=== PATIENT | male | born 1975 | race Caucasian/White ===

== ENCOUNTER 2020-02-09 16:50 | Emergency (ER) | payer OTHER ==
[~2020-02-09] VITALS: Ht 180.3 cm; Wt 99.8 kg
[2020-02-09 18:45] LABS: HEMATOCRIT 44.4 % (42.0-52.0); HEMOGLOBIN 15.7 gm/dL (14.0-18.0); MCH 33.5 pg (26.0-34.0); MCHC 35.4 g/dL (28.0-37.0); MCV 94.6 fL (80.0-100.0); MPV 8.8 fl. (7.2-11.1); NUCLEATED RBCS 0 /100WBC; PLATELET COUNT* 120 thou/uL (150-400); RBC 4.69 mil/uL (4.50-6.00); WBC 11.1 thou/uL (4.0-11.0)
[2020-02-09 18:54] LABS: CALCIUM 8.6 mg/dL (8.5-10.1); CREATININE 1.3 mg/dL (0.6-1.3); POTASSIUM 4.1 mmol/L (3.5-5.1)
[2020-02-09 18:58] LABS: APTT 31.7 Seconds (25.0-31.3)
[2020-02-09 19:05] LABS: ALBUMIN 3.4 g/dL (3.4-5.0); TOTAL BILIRUBIN 0.6 mg/dL (<0.1-1.0); TOTAL PROTEIN 7.4 g/dL (6.4-8.2)
[2020-02-09 19:15] LABS: ABSOLUTE LYMPHOCYTES 0.9 thou/uL (0.8-5.3); ABSOLUTE MONOCYTES 0.3 thou/uL (0.0-1.2); ABSOLUTE NEUTROPHILS 9.9 thou/uL (1.6-8.1)
[2020-02-09 19:18] LABS: LARGE PLATELETS OCCASIONAL; PLATELET ESTIMATE ADEQUATE
[2020-02-09] MEDS ORDERED: PREDNISONE 20 M20 MG PO (19:53)
[2020-02-09] MEDS ORDERED: ONDANSETRON HCL4 M2 PO (19:53)
[2020-02-09] MEDS ORDERED: ZPAK PO (19:53)
[2020-02-09] MEDS ORDERED: VENTOLIN HFA 1818 GM INH (19:53)
[2020-02-09 20:12] VITALS: BP 118/78
--- NOTE | 2020-02-10 09:35 | EKG ---
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
== END 2020-02-09 20:13 | disposition home or self-care (01) ==
LOC: M.ERS 16:50
PROVIDERS: Nurse Practitioner Family
DX: U07.1 COVID-19 (principal); R06.02 Shortness of breath; R05 Cough; R53.83 Other fatigue

== ENCOUNTER 2020-02-12 10:33 | Inpatient (IN) | payer OTHER ==
[~2020-02-12] VITALS: Ht 180.3 cm; Wt 100.2 kg
[~2020-02-12 10:33] MED LIST: ONDANSETRON HCL4 M2 PO; PREDNISONE 20 M20 MG PO; VENTOLIN HFA 1818 GM INH; ZPAK PO
[2020-02-12 10:52] VITALS: BP 125/56
[2020-02-12 11:38] LABS: HEMATOCRIT 39.7 % (42.0-52.0); MCH 33.6 pg (26.0-34.0); MCHC 35.1 g/dL (28.0-37.0); MCV 95.6 fL (80.0-100.0); MPV 8.7 fl. (7.2-11.1); NUCLEATED RBCS 0 /100WBC; RBC 4.16 mil/uL (4.50-6.00); RDW-CV 13.2 % (10.5-14.5); WBC 16.7 thou/uL (4.0-11.0)
[2020-02-12 11:39] LABS: PLATELET COUNT* 202 thou/uL (150-400)
[2020-02-12 11:50] LABS: APTT 30.5 Seconds (25.0-31.3); INR 0.9; PROTIME 9.8 Seconds (9.20-11.50)
[2020-02-12 11:56] LABS: CALCIUM 8.6 mg/dL (8.5-10.1); CREATININE 1.4 mg/dL (0.6-1.3); POTASSIUM 4.1 mmol/L (3.5-5.1)
[2020-02-12 12:15] LABS: ALBUMIN 2.6 g/dL (3.4-5.0); TOTAL BILIRUBIN 1.1 mg/dL (<0.1-1.0); TOTAL PROTEIN 6.9 g/dL (6.4-8.2)
[2020-02-12 12:45] LABS: ABSOLUTE LYMPHOCYTES 0.5 thou/uL (0.8-5.3); ABSOLUTE MONOCYTES 0.2 thou/uL (0.0-1.2); PLATELET ESTIMATE ADEQUATE
[2020-02-12 16:19] VITALS: BP 128/77
--- NOTE | 2020-02-12 16:23 | EKG ---
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
[2020-02-12 19:30] VITALS: BP 138/92
--- NOTE | 2020-02-12 20:00 | NUR ---
RECEIVED REPORT FROM ER, TO ROOM PER CART. PT VERY SOA WITH REST OR SLIGHTIST MOVEMENT. O2 ON AT 60L/HHFC, HOB ELEVATED. CONT PULSE OX APPLIED, DESATS EASILY BUT RECOVERS/MAINTAINS 88-91%. TELEMETRY APPLIED SHOWING ST. PT VERY ANXIOUS AND ASKING IF HE IS GOING TO WITH THIS. REASSURANCE GIVEN. SEE ADMISSION ASSESSMENT AND HX. PLACED IN ENHANCED ISOLATION, WILL CONT TO MONITOR FREQ.
[2020-02-13] VITALS: BP 156/79
[2020-02-13 04:00] VITALS: BP 149/90
[2020-02-13 05:18] LABS: ABSOLUTE LYMPHOCYTES 0.4 thou/uL (0.8-5.3); ABSOLUTE MONOCYTES 0.5 thou/uL (0.0-1.2); ABSOLUTE NEUTROPHILS 11.6 thou/uL (1.6-8.1); BASOPHILS 0.2 %; HEMATOCRIT 40.6 % (42.0-52.0); HEMOGLOBIN 14.2 gm/dL (14.0-18.0); LYMPHOCYTES 3.5 %; MCH 33.8 pg (26.0-34.0); MCHC 34.8 g/dL (28.0-37.0); MCV 97.1 fL (80.0-100.0); MONOCYTES 4.1 %; MPV 8.6 fl. (7.2-11.1); NUCLEATED RBCS 0 /100WBC; PLATELET COUNT* 211 thou/uL (150-400); POLYS 92.2 %; RBC 4.19 mil/uL (4.50-6.00); RDW-CV 13.2 % (10.5-14.5); WBC 12.6 thou/uL (4.0-11.0)
[2020-02-13 05:40] LABS: CALCIUM 8.6 mg/dL (8.5-10.1); CREATININE 1.2 mg/dL (0.6-1.3); POTASSIUM 4.5 mmol/L (3.5-5.1)
--- NOTE | 2020-02-13 05:47 | NUR ---
ANXIOUS MOST OF NIGHT, ABLE TO SLEEP ONLY SHORT PERIODS OF TIME. HAVING OCC DRY COUGH CAUSING INCREASE SOA. ANY ACTIVITY PT BECOMES EXTREMELY DYSPNIC. O2 ON AT 60L/HHFC. CONT PULSE OX SHOWING 88-90% BUT INTO MID 80'S WITH ACTIVITY. VOIDING WITHOUT DIFFICULTY. TELEMETRY SHOWING SR TO ST. PT IN ENHANCED ISOLATION BECAUSE OF COVID. HOURLY ROUNDING OBSERVED.
[2020-02-13 09:56] LABS: BE -1.8 mmol/L (-2 to +3); PCO2 29.3 mmHg (35.0-45.0); pH 7.467 (7.340-7.450)
[2020-02-13 09:59] LABS: PO2 55.2 mmHg (75.0-100.0)
--- NOTE | 2020-02-13 14:30 | NUR ---
Covid positive. CM spoke with via phone. Pt on heated high flow o2, does not normally wear home o2. No DME. Active and independent. No hx of HH or SNF. On Remdisivir. Transferring to the ICU per pulm.
[2020-02-13 16:07] LABS: CREATININE 1.3 mg/dL (0.6-1.3); MAGNESIUM 2.3 mg/dL (1.8-2.4); POTASSIUM 4.1 mmol/L (3.5-5.1)
[2020-02-13 16:12] LABS: APTT 28.7 Seconds (25.0-31.3); PROTIME 10.3 Seconds (9.20-11.50)
[2020-02-13 16:14] LABS: ALBUMIN 2.1 g/dL (3.4-5.0); DIRECT BILIRUBIN 0.4 mg/dL (<0.1-0.3); TOTAL BILIRUBIN 0.9 mg/dL (<0.1-1.0); TOTAL PROTEIN 6.8 g/dL (6.4-8.2)
--- NOTE | 2020-02-13 17:46 | NUR ---
REBEKAH DEVELOPED INCRESED SHORTNESS OF BREATH WHILE USING 60 L HEATED HIGH FLOW AND THE DECISIONO WAS MADE OT INTUBATE AND TRANSFER TO ICU. AT 15:00
--- NOTE | 2020-02-13 18:06 | NUR ---
RECIEVED PT FROM TELE ON VERSED AND FENTANYL MAX DOSE. WITH ET TUBE AND HOOKED TO MV. SEEN BY PULMO WITH ORDERS CARRIED OUT. CENTRAL LINE INSERTED AND STILL FOR ARTLINE INSERTION. KEPT ON ISOLATION. STILL TO TRANSFUSE FFP. CONTINUE MONITORING AND TOWARDS GOALS. UPDATE GIVEN TO CYNDEE.
[2020-02-13 18:23] LABS: BE -3.6 mmol/L (-2 to +3)
[2020-02-13 18:25] LABS: PCO2 51.4 mmHg (35.0-45.0); pH 7.279 (7.340-7.450)
[2020-02-13 19:00] VITALS: BP 153/63
[2020-02-13 21:30] VITALS: BP 115/53
[2020-02-13 21:55] VITALS: BP 123/57; BP 127/58
[2020-02-14] VITALS (19 sets, daily range): BP systolic 114–215; BP diastolic 52–140
[2020-02-14 06:28] LABS: ABSOLUTE LYMPHOCYTES 0.3 thou/uL (0.8-5.3); ABSOLUTE MONOCYTES 0.7 thou/uL (0.0-1.2); ABSOLUTE NEUTROPHILS 8.1 thou/uL (1.6-8.1); BASOPHILS 0.1 %; HEMATOCRIT 34.4 % (42.0-52.0); LYMPHOCYTES 3.4 %; MCH 33.5 pg (26.0-34.0); MCHC 34.6 g/dL (28.0-37.0); MCV 96.7 fL (80.0-100.0); MONOCYTES 7.4 %; MPV 8.7 fl. (7.2-11.1); NUCLEATED RBCS 0 /100WBC; PLATELET COUNT* 257 thou/uL (150-400); POLYS 89.1 %; RBC 3.56 mil/uL (4.50-6.00); RDW-CV 13.4 % (10.5-14.5); WBC 9.1 thou/uL (4.0-11.0)
[2020-02-14 06:30] LABS: HEMOGLOBIN 11.9 gm/dL (14.0-18.0)
[2020-02-14 06:56] LABS: CALCIUM 8.1 mg/dL (8.5-10.1); CREATININE 1.3 mg/dL (0.6-1.3); MAGNESIUM 2.9 mg/dL (1.8-2.4); POTASSIUM 4.7 mmol/L (3.5-5.1); TOTAL BILIRUBIN 0.6 mg/dL (<0.1-1.0); TOTAL PROTEIN 6.2 g/dL (6.4-8.2)
[2020-02-14 08:16] LABS: BE 0.5 mmol/L (-2 to +3); PCO2 42.1 mmHg (35.0-45.0); PO2 108.4 mmHg (75.0-100.0)
--- NOTE | 2020-02-14 18:25 | NUR ---
VENT SUPP CONTD, SEDATION WITH FENTANYL, VERSED AND NIMBEX DRIPS. TUBE FEEDING INITIATED WITH VITAL HP AT 20 MLS/HR. TOLERATED THROUGHOUT THE DAY. PT'S BP ELEVATED TO 200s/90s, AND HR TO HIGH 120s, REMAINED HIGH DESPITE OF HYDRALAZINE AND LABETALOL. SEDATION MAXED WITH FENTANYL TO 100 AND VERSED TO 10, BP DECREASING. INSULIN PER PROTOCOL. Q2 TURNS AND ORAL CARE GIVEN. , CYNDEE UPDATED.
--- NOTE | 2020-02-14 22:45 | NUR ---
NIMBEX GTT HELD FOR 1 HOUR. PATIENT WOKE UP AND STARTED PULLING ON ET TUBE. NIMBEX GTT STARTED AT 2340. PT RESTING AT THIS TIME.
[2020-02-15] VITALS (27 sets, daily range): BP systolic 114–180; BP diastolic 54–85
[2020-02-15 10:04] LABS: HEMOGLOBIN 11.8 gm/dL (14.0-18.0); MCH 32.7 pg (26.0-34.0); MCHC 33.9 g/dL (28.0-37.0); MCV 96.7 fL (80.0-100.0); MPV 8.5 fl. (7.2-11.1); RBC 3.62 mil/uL (4.50-6.00); RDW-CV 13.2 % (10.5-14.5); WBC 8.1 thou/uL (4.0-11.0)
[2020-02-15 10:21] LABS: ALBUMIN 1.9 g/dL (3.4-5.0); CALCIUM 7.9 mg/dL (8.5-10.1); CREATININE 1.2 mg/dL (0.6-1.3); POTASSIUM 4.9 mmol/L (3.5-5.1); TOTAL BILIRUBIN 0.4 mg/dL (<0.1-1.0); TOTAL PROTEIN 6.1 g/dL (6.4-8.2)
[2020-02-15 11:35] LABS: BE -1.6 mmol/L (-2 to +3); PCO2 45.8 mmHg (35.0-45.0); PO2 93.6 mmHg (75.0-100.0); pH 7.345 (7.340-7.450)
--- NOTE | 2020-02-15 18:35 | NUR ---
AT 1115, NIMBEX DRIP HELD AND PRECEDEX DRIP STARTED, WHICH IS CURRENTLY AT 0.8. SEDATION ADEQUATE WITH FENTANYL, VERSED AND PRECEDEX GTT. VENTILATING EFFECTIVELY, PEEP DECREASED TO 13 AND FIO2 TO 60%. VSS. UPDATED. B/L SOFT RESTRAINTS INITIATED AT 1400. TOLERATING TUBE FEEDING VITAL HP AT 60 MLS/HR.
[2020-02-15 22:01] LABS: BE 0.2 mmol/L (-2 to +3); PCO2 39.4 mmHg (35.0-45.0); pH 7.414 (7.340-7.450)
[2020-02-15 22:03] LABS: PO2 138.8 mmHg (75.0-100.0)
[2020-02-16] VITALS (36 sets, daily range): BP systolic 111–200; BP diastolic 65–99
--- NOTE | 2020-02-16 06:34 | NUR ---
PT COMFORTABLE WITH PRECEDEX, FENTANYL AND VERSED GTT. PRECEDEX TITRATED DOWN TO 0.7 MCG/KG/HR FOR LOW HR. PT EASILY AWAKE WITH TURNS, HOWEVER. REACHES FOR TUBES. REMAINS RESTRAINED. HIGH TF RESIDUALS THROUGH THE NIGHT. RATE DECREASED TO 40ML/HR. NO BM, UOP 1100 CC. OTHERWISE UNEVENTFUL NIGHT. Q2 TURNS FOR SKIN INTEGRITY. WILL CONTINUE MONITORING FOR THE REMAINDER OF SHIFT.
[2020-02-16 12:24] LABS: HEMATOCRIT 38.9 % (42.0-52.0); HEMOGLOBIN 13.4 gm/dL (14.0-18.0); MCH 33.2 pg (26.0-34.0); MCHC 34.4 g/dL (28.0-37.0); MCV 96.5 fL (80.0-100.0); MPV 8.5 fl. (7.2-11.1); NUCLEATED RBCS 0 /100WBC; PLATELET COUNT* 302 thou/uL (150-400); RBC 4.04 mil/uL (4.50-6.00); RDW-CV 13.1 % (10.5-14.5); WBC 7.5 thou/uL (4.0-11.0)
[2020-02-16 12:29] LABS: BE 0.3 mmol/L (-2 to +3); PCO2 40.1 mmHg (35.0-45.0); PO2 66.3 mmHg (75.0-100.0); pH 7.411 (7.340-7.450)
[2020-02-16 12:44] LABS: CREATININE 1.1 mg/dL (0.6-1.3); MAGNESIUM 2.4 mg/dL (1.8-2.4); PHOSPHORUS* 3.6 mg/dL (2.5-4.9); POTASSIUM 4.6 mmol/L (3.5-5.1); TOTAL BILIRUBIN 0.7 mg/dL (<0.1-1.0); TOTAL PROTEIN 6.3 g/dL (6.4-8.2)
[2020-02-16 13:00] LABS: ABSOLUTE LYMPHOCYTES 0.4 thou/uL (0.8-5.3); ABSOLUTE MONOCYTES 0.3 thou/uL (0.0-1.2); ABSOLUTE NEUTROPHILS 6.8 thou/uL (1.6-8.1); ATYPICAL LYMPHS 1 %; PLATELET ESTIMATE ADEQUATE
--- NOTE | 2020-02-16 16:00 | NUR ---
ICU ROUNDS: PT.REMAINS ON VENT AND SEDATED. QUIET DAY. VSS. UPDATED PER PHONE. CM WILL FOLLOW.
--- NOTE | 2020-02-16 18:04 | NUR ---
PT REMAINS INTUBATED PER ORDERED SETTINGS.SEDATED ON VERSED/FENTANYL.PT IS AROUSABLE WITH TOUCH/NAME AND ANSWERS YES AND NO.TOLERATING TUBE FEEDS.ISOLATION MAINTAINED.WILL CONTINUE TO MONITOR FOR DURATION OF SHIFT.
[2020-02-17] VITALS (14 sets, daily range): BP systolic 80–161; BP diastolic 59–108
[2020-02-17 06:20] LABS: ABSOLUTE LYMPHOCYTES 0.4 thou/uL (0.8-5.3); ABSOLUTE MONOCYTES 0.6 thou/uL (0.0-1.2); ABSOLUTE NEUTROPHILS 5.6 thou/uL (1.6-8.1); BASOPHILS 0.2 %; HEMATOCRIT 37.2 % (42.0-52.0); HEMOGLOBIN 12.8 gm/dL (14.0-18.0); MCH 32.8 pg (26.0-34.0); MCHC 34.4 g/dL (28.0-37.0); MCV 95.5 fL (80.0-100.0); MONOCYTES 9.5 %; MPV 8.7 fl. (7.2-11.1); NUCLEATED RBCS 0 /100WBC; PLATELET COUNT* 318 thou/uL (150-400); POLYS 84.3 %; RDW-CV 13.3 % (10.5-14.5); WBC 6.7 thou/uL (4.0-11.0)
[2020-02-17 06:29] LABS: ALBUMIN 2.2 g/dL (3.4-5.0); CREATININE 1.1 mg/dL (0.6-1.3); POTASSIUM 4.6 mmol/L (3.5-5.1); TOTAL BILIRUBIN 0.6 mg/dL (<0.1-1.0); TOTAL PROTEIN 5.9 g/dL (6.4-8.2)
--- NOTE | 2020-02-17 15:00 | NUR ---
ICU ROUNDS: PT.REMAINS ON VENT AND SEDATED. HAS PAIGE AND CENTRAL LINE. WILTONRN STATED SHE SPOKE WITH ON PHONE TODAY. PT.MOVED UP HERE TO START A NEW JOB. /CYNDEE REMAINS IN [place] AT THIS TIME.
--- NOTE | 2020-02-17 17:47 | 2DMMODE ---
[place] [address] 2 D/M-MODE ECHOCARDIOGRAM Name: ILAN CONNOLLYJesse Meyer Room: [address] IN .R.#: [id number] Admission: 02/12/20 Attend Phys: Claudy Randall, Discharge: Date of : 73 Date of Service: 02/17/20 1746 Report #: [id number] THIS REPORT FOR: cc: FAM - No family physician/PCP FAM - No family physician/PCP Brian Kaur MD [facility] ~ APPROVED REPORT Study performed: 02/17/2020 09:26:36 EXAM: Limited 2D, Doppler, and color-flow Echocardiogram Patient Location: Bedside BSA: 2.26 HR: 91 bpm BP: 141/68 mmHg Other Information Study Quality: Adequate Technically limited study due to inability to position patient. Indications Dyspnea Covid Positive, Respiratory Failure 2D Dimensions IVSd: 13.04 (7-11mm) LVOT Diam: 16.67 (18-24mm) LVDd: 43.94 mm PWd: 10.99 (7-11mm) Ascending Ao: 34.23 (22-36mm) LVDs: 28.28 (25-40mm) Aortic Root: 29.45 mm Volumes Left Atrial Volume (Systole) LA ESV Index: 21.60 mL/m2 Aortic Valve AoV Peak Maximilian.: 1.17 m/s AO Peak Gr.: 5.44 mmHg LVOT Max P.45 mmHg AO Mean Gr.: 3.42 mmHg LVOT Mean P.81 mmHg LVOT Max V: 0.93 m/s AO V2 VTI: 19.75 cm LVOT Mean V: 0.63 m/s DUNCAN (VTI): 1.95 cm2 LVOT V1 VTI: 17.[place] [address] 2 D/M-MODE ECHOCARDIOGRAM Name: INDIA CONNOLLY Room: [address] IN .R.#: [id number] Admission: 02/12/20 Attend Phys: Caludy Randall, Discharge: Date of : 73 Date of Service: 02/17/20 1746 Report #: [id number] Mitral Valve E/A Ratio: 0.97 MV Decel. Time: 283.86 ms MV E Max Maximilian.: 0.59 m/s MV PHT: 82.32 ms MVA (PHT): 2.67 cm2 Pulmonary Valve PV Peak Maximilian.: 1.14 m/s PV Peak Gr.: 5.22 mmHg Tricuspid Valve RAP Estimate: 5.00 mmHg TR Peak Gr.: 16.07 mmHg RVSP: 21.07 mmHg PA Pressure: 21.07 mmHg Left Ventricle The left ventricle is normal size. There is normal LV segmental wall motion. There is normal left ventricular wall thickness. Left ventricular systolic function is normal. LVEF is 60-65%. Right Ventricle The right ventricle is normal size. The right ventricular systolic function is normal. Atria The left atrium size is normal. Interatrial septum not well visualized. The right atrium size is normal. Aortic Valve The aortic valve is not well visualized. No aortic regurgitation is present. There is no aortic valvular stenosis. Mitral Valve The mitral valve is normal in structure. There is no mitral valve regurgitation noted. No evidence of mitral valve stenosis. Tricuspid Valve The tricuspid valve is normal in structure. Trace tricuspid regurgitation. Pulmonic Valve Pulmonic valve is grossly normal in structure. There is no pulmonic valvular regurgitation. Great Vessels The aortic root is normal in size[place] [address] 2 D/M-MODE ECHOCARDIOGRAM Name: INDIA CONNOLLY Room: [address] IN [facility]#: [id number] Admission: 02/12/20 Attend Phys: Claudy Randall, Discharge: Date of : 73 Date of Service: 02/17/20 1746 Report #: [id number] visualized. Pericardium There is no pericardial effusion. <Conclusion> The left ventricle is normal size. There is normal left ventricular wall thickness. Left ventricular systolic function is normal. LVEF is 60-65%. There is normal LV segmental wall motion. Trace tricuspid regurgitation. IVC is not visualized. <ELECTRONICALLY SIGNED> By: Brian Kaur MD, FACC 02/17/201745 45 45 Brian Kaur MD, FACC /INF
--- NOTE | 2020-02-17 18:50 | NUR ---
pt advanced toward goal able to open eyes follow commands such as squeezing hands when asked artline d/c cont fent and versad gtt tolerating well vs within normal range cta completed today for possible PE ct was negative assessment as charted yosef updated throout shift
[2020-02-18] VITALS (20 sets, daily range): BP systolic 103–162; BP diastolic 55–98
--- NOTE | 2020-02-18 04:39 | NUR ---
ASSUMED CARE AT 1900H, ON VENT WITH PRESSURE SUPPORT AT 40% AND TOLERATED. SEEN ON BED, ON VERSED AND FENTANYL MAX DOSE. PT FOLLOWED COMMANDS AND EYE OPENING TO WORDS OR SOMETIMES SPONTENEOUS. NO DISTRESS AND NO FEVER NOTED. KEPT SAFE. CONTINUE MONITORING AND TOWARDS GOALS.
[2020-02-18 05:43] LABS: ABSOLUTE LYMPHOCYTES 0.3 thou/uL (0.8-5.3); ABSOLUTE MONOCYTES 0.5 thou/uL (0.0-1.2); ABSOLUTE NEUTROPHILS 5.2 thou/uL (1.6-8.1); BASOPHILS 0.2 %; HEMATOCRIT 37.5 % (42.0-52.0); HEMOGLOBIN 12.9 gm/dL (14.0-18.0); LYMPHOCYTES 5.1 %; MCH 32.7 pg (26.0-34.0); MCHC 34.3 g/dL (28.0-37.0); MCV 95.3 fL (80.0-100.0); MONOCYTES 8.6 %; MPV 8.4 fl. (7.2-11.1); NUCLEATED RBCS 0 /100WBC; PLATELET COUNT* 331 thou/uL (150-400); POLYS 86.1 %; RBC 3.94 mil/uL (4.50-6.00); WBC 6.1 thou/uL (4.0-11.0)
[2020-02-18 05:57] LABS: ALBUMIN 2.4 g/dL (3.4-5.0); CREATININE 1.1 mg/dL (0.6-1.3); MAGNESIUM 2.6 mg/dL (1.8-2.4); POTASSIUM 4.8 mmol/L (3.5-5.1); TOTAL BILIRUBIN 0.7 mg/dL (<0.1-1.0); TOTAL PROTEIN 5.9 g/dL (6.4-8.2)
[2020-02-18 06:04] LABS: PREALBUMIN 26.5 mg/dL (18.0-35.7)
[2020-02-18 12:05] LABS: BE 0.1 mmol/L (-2 to +3); PCO2 37.3 mmHg (35.0-45.0); PO2 66.8 mmHg (75.0-100.0); pH 7.428 (7.340-7.450)
--- NOTE | 2020-02-18 16:03 | NUR ---
ICU rounds: Pt o2 requirements improving, pulm planning weaning trial today. Continue IVabx and steroids.
[2020-02-19] VITALS (17 sets, daily range): BP systolic 121–152; BP diastolic 70–91
--- NOTE | 2020-02-19 04:41 | NUR ---
ASSUMED CARE AT 1910H, ON HIFLOW NC AT 7LPM AND TOLERATED. SEEN ON BED CALM WITH ON PAIN. NO DISTRESS AND NO FEVER NOTED. UPDATE GIVEN TO . PT DID'NT SLEEP ALOT AND HE SAID THAT HE IS SCARED TO SLEEP. PT A LITTLE BIT ANXIOUS AT TIMES. CONTINUE MONITORING AND TOWARDS GOALS.
[2020-02-19 05:42] LABS: ABSOLUTE BASOPHILS 0.1 thou/uL (0.0-0.2); ABSOLUTE LYMPHOCYTES 0.4 thou/uL (0.8-5.3); ABSOLUTE MONOCYTES 0.6 thou/uL (0.0-1.2); BASOPHILS 0.7 %; HEMATOCRIT 39.7 % (42.0-52.0); HEMOGLOBIN 13.4 gm/dL (14.0-18.0); LYMPHOCYTES 5.5 %; MCH 32.5 pg (26.0-34.0); MCHC 33.9 g/dL (28.0-37.0); MONOCYTES 7.2 %; MPV 8.9 fl. (7.2-11.1); NUCLEATED RBCS 0 /100WBC; PLATELET COUNT* 307 thou/uL (150-400); POLYS 86.6 %; RBC 4.14 mil/uL (4.50-6.00); RDW-CV 12.7 % (10.5-14.5); WBC 8.1 thou/uL (4.0-11.0)
[2020-02-19 05:43] LABS: ALBUMIN 2.5 g/dL (3.4-5.0); CALCIUM 8.4 mg/dL (8.5-10.1); POTASSIUM 4.6 mmol/L (3.5-5.1); TOTAL PROTEIN 6.4 g/dL (6.4-8.2)
--- NOTE | 2020-02-19 12:14 | NUR ---
PHYSICAL THERAPY WORKING WITH PT AT BEDSIDE
--- NOTE | 2020-02-19 12:20 | CON ---
[address] [address] CONSULTATION Name: INDIA CONNOLLY Mitch Room: [address] IN M.R.#: [id number] Admission: 02/12/20 Attend Phys: Claudy Randall MD Discharge: Date of : 73 Report #: [id number] THIS REPORT FOR: //name// cc: ITFFANY Azar family physician/PCP TIFFANY Azar family physician/PCP ~ THIS REPORT FOR: //name// CC: Claudy Randall [facility] physician/PCP CONSULT REQUESTED BY: Claudy Randall MD INDICATION FOR CONSULTATION: Acute hypoxemic respiratory failure secondary to COVID-19. HISTORY OF PRESENT ILLNESS: A 44-year-old gentleman. He is reported to be a lifetime nonsmoker. There is no reported past medical history. I have suspicion that he may have underlying obstructive sleep apnea, not previously diagnosed. The patient was diagnosed with COVID-19 on 02/09/2020, has had increasing shortness of breath, also has a clear nasal discharge and has a high-grade fever up to 38.9 degrees Celsius. The patient has been treated as an outpatient with azithromycin as well as prednisone. The patient, however, continued to decline and therefore was admitted through the Emergency Room yesterday. At this time, the patient remains short of breath at rest. He is on heated high-flow with a 100% FiO2 and 40 liters flow. He is barely maintaining O2 saturation between 88-90%. The patient has been claustrophobic and therefore he has had fairly limited use of BiPAP and at this time, he is therefore not on BiPAP. The patient does not, however, feel any worse than yesterday. There is not much sputum at this time. There is no chest pain. There is not much swelling of lower extremities. There is no calf pain. The patient does have shortness of breath at rest. He answered to the negative for 12 other questions for review of systems. PAST MEDICAL HISTORY: No past medical history. I have suspicion that he may have previously undiagnosed obstructive sleep apnea. SOCIAL HISTORY: Lifetime nonsmoker. No known history of heavy alcohol use or illegal drug use. CURRENT MEDICATIONS: List in Health As We Age reviewed. HOME MEDICATIONS: List in Health As We Age reviewed. Also, see discussion above. FAMILY HISTORY: No [place] [address] CONSULTATION Name: INDIA CONNOLLY Room: [address]#: [id number] Admission: 02/12/20 Attend Phys: Claudy Randall MD Discharge: Date of : 73 Report #: [id number] PHYSICAL EXAMINATION: VITAL SIGNS: The patient is short of breath at rest. At the time of my examination, the patient was saturating 88% on 100% FiO2 with 40 liters flow. I asked him to close his mouth and breathe through his nose, his O2 saturation came up to 90%. He has been tachypneic, respiratory rate has been in the range of 25-28. He is also tachycardic, heart rate of around 100-110. He has a high-grade fever, temperature is 38.9. HEENT: Head is normocephalic and atraumatic. He does appear to have a narrow airway. NECK: Does not show raised JVP, asymmetry, mass or lymph nodes. CHEST: Symmetrical expansion on inspection and palpation. On auscultation, breath sounds are equal, but diminished. I do not hear any added sounds. HEART: Regular. There is mild tachycardia as above. There is no murmur. ABDOMEN: Soft and nontender. EXTREMITIES: Lower extremities show no edema, no calf tenderness. SKIN: Dry and intact. NEUROLOGICAL: He moves all extremities bilaterally equally and spontaneously with no focal deficit identified. LABORATORY DATA: The patient's chest x-ray is reviewed and compared with the chest x-ray yesterday, there is no significant change. The chest x-ray is consistent with ARDS secondary to COVID-19. The patient's lab work including CBC as well as chemistries performed yesterday as well as today in [facility] reviewed. Coagulation studies were performed yesterday in [facility] reviewed. We do not have a D-dimer available. The patient's arterial blood gases consistent with acute hypoxemic respiratory failure in [facility] reviewed. COVID-19 antigen is positive. ASSESSMENT AND PLAN: 1. Acute hypoxemic respiratory failure. The patient is severely hypoxemic. I would have preferred that he is in the ICU. However, the patient at this time does not appear to be stable for transport to the ICU without endotracheally intubating him first, placing him on a BiPAP for transport is not an option due to prohibitive risk to staff members in the hospital. I would therefore, for now, keep him cautiously on the telemetry floor. We will strongly encourage him to wear BiPAP as he is barely maintaining O2 saturation on a heated high flow. In case the patient fails to improve or declines, then I will in that case, consider endotracheally intubating him on the floor and then placing him on a ventilator on the floor and then transporting him through the ICU and therefore, for now, I recommended that he be kept n.p.o. except meds. 2. COVID-19. The patient's LFTs are noted to be mildly elevated. I still feel that the benefit of giving him remdesivir outweighs the risks and therefore, I would continue. I considered as to whether we should give him convalescent plasma. I feel that there will be a significant risk in giving him considering that plasma is a fluid load. We will watch closely and follow, it is possible that down the line, we consider convalescent [place] [address] CONSULTATION Name: INDIA CONNOLLY Room: [address] IN [facility].#: [id number] Admission: 02/12/20 Attend Phys: Claudy Randall MD Discharge: Date of : 73 Report #: [id number] 3. Acute respiratory distress syndrome with pulmonary infiltrates. Considering severe hypoxemia, which is life-threatening. I went ahead and increased his steroids further. We will also cover him very broadly with antibiotics for now. He is on Zosyn already. I added linezolid and Levaquin. We will do a nasal swab for methicillin-resistant Staphylococcus aureus. 4. Mild fluid overload/rhabdomyolysis. The patient's CPK was elevated yesterday. He has therefore been fluid resuscitated. He appears to be mildly fluid overloaded at this time. Considering elevation in CPK, there is a significant risk in keeping him on the tray drier side, in case could result in acute renal failure, I understand this risk, but considering that the patient has severe hypoxemia and we need to continue to oxygenate him, while understanding this risk, I did discontinue his IV fluids and I did give him one dose of Lasix. We will repeat labs this evening and then adjust, this will be a delicate balance titrating his fluid status. 5. Evaluation for thromboembolic phenomenon. The COVID-19 is known to be a hypercoagulable state and studies have shown that with high dose anticoagulation in patients with severe hypoxemia, outcomes are better. Therefore, I did order full dose Lovenox. I did, however, also ordered a D-dimer for this afternoon in the unlikely event that D-dimer is not elevated. We certainly could cut back Lovenox again to prophylactic dose. In case the D-dimer is elevated, I will plan to do a CTA chest at a future time when he is stable for transport. 6. Bronchospasm. I feel there is a component of this as well. We will give him Brovana. 7. Hyperglycemia, insulin sliding scale. 8. Gastrointestinal prophylaxis, Protonix. 9. Clostridium difficile prophylaxis, Florastor. 10. Suspected underlying obstructive sleep apnea as above, my recommendation is that he does wear the BiPAP while asleep if he is hypoxemic on the heated high-flow oxygenator. I would recommend that he wear it while awake as well. I would encourage him to place the BiPAP on right now and keep it in place until around 5:00 p.m. and then use the BiPAP again at night. The patient, however, is significantly claustrophobic, which may make this difficult. The patient is critically ill at this time. Total time spent providing critical care to this patient today exceeds 45 minutes. <ELECTRONICALLY SIGNED> By: Tony Alcazar MD 02/19/20 1220 1132 1200Tony Alcazar MD /nt
--- NOTE | 2020-02-19 15:53 | NUR ---
ICU rounds: Tele status. Doing better. Extubated yesterday on 5L o2. Covid positive.
--- NOTE | 2020-02-19 18:06 | NUR ---
TRANSFERRED TO 224 VIA BED ON 5L O2 PER NC WHILE MAINTAINING ENHANCED PRECAUTION PROTOCOL DURING TRANSFER. REPORT GIVEN TO BELKIS VAZQUEZ. ALL PERSONAL BELONGINGS TO 224. PTS NOTIFIED OF ROOM NUMBER.
--- NOTE | 2020-02-19 18:26 | NUR ---
REPORT NOTED PER GEORGE, RN FROM [facility], RN IN ICU OF EXPECTED TRANSFER- THIS NURSE AND TECH DOWN TO TRANSFER PT VIA BED FROM ICU TO ROOM 224- SUCCESSFUL TRANSFER NOTED- PT A&O X4- IV NOTED INTACT WITH IV ABT INFUSSING PRESCRIBED- SUCTION SET UP AND PROVIDED AT BED SIDE PER PT REQUEST FOR COMFORT- DINNER PROVIDED WITH POOR PO INTAKE NOTED- CERAMICS MACHINE OPERATOR PLACED ORDERED, TRACING SR- COVID PRECAUTION CONTINUED INDICATED IN PLACE, SCRUBBER IN PLACE AND IN USE INDICATED- VSS- BS TAKEN AT TIME OF TRANSFERS WITH SSI GIVEN PRESCRIBED-PAIGE IN PLACE D/D CLEAR YELLOW URINE- CALL LIGHT AND PERSONAL BELONGINGS WITH IN REACH- ALL NEEDS MET AT THIS TIME-WCTM
[2020-02-20] VITALS: BP 146/87
[2020-02-20 04:00] VITALS: BP 132/78
--- NOTE | 2020-02-20 07:01 | NUR ---
PT CARE ASSUMED AT 1930. SAT MAINTAINED IN 5L NC. ALERT AND ORIENTED X4. PT IS ANXIOUS. CALL LIGHT WITHIN REACH AND BED IN LOW POSITION. PAIGE IN PLACE AND DRAINING. HOURLY ROUNDING DONE FOR PT SAFETY.
[2020-02-20 07:05] LABS: ABSOLUTE BASOPHILS 0.1 thou/uL (0.0-0.2); ABSOLUTE LYMPHOCYTES 0.7 thou/uL (0.8-5.3); ABSOLUTE MONOCYTES 0.7 thou/uL (0.0-1.2); ABSOLUTE NEUTROPHILS 5.9 thou/uL (1.6-8.1); EOSINOPHILS 0.1 %; HEMATOCRIT 40.2 % (42.0-52.0); HEMOGLOBIN 13.7 gm/dL (14.0-18.0); MCH 32.5 pg (26.0-34.0); MCHC 34.1 g/dL (28.0-37.0); MCV 95.2 fL (80.0-100.0); MONOCYTES 9.3 %; MPV 8.6 fl. (7.2-11.1); NUCLEATED RBCS 0 /100WBC; PLATELET COUNT* 343 thou/uL (150-400); POLYS 79.6 %; RBC 4.23 mil/uL (4.50-6.00); WBC 7.4 thou/uL (4.0-11.0)
[2020-02-20 07:50] LABS: ALBUMIN 2.5 g/dL (3.4-5.0); CALCIUM 8.1 mg/dL (8.5-10.1); MAGNESIUM 2.3 mg/dL (1.8-2.4); POTASSIUM 4.7 mmol/L (3.5-5.1); TOTAL BILIRUBIN 1.1 mg/dL (<0.1-1.0); TOTAL PROTEIN 6.4 g/dL (6.4-8.2)
[2020-02-20 08:00] VITALS: BP 128/86
--- NOTE | 2020-02-20 11:00 | NUR ---
ASSUMED CARE OF PT AT 0730. PT RESTING IN BED. A&0X4, DENIES ANY PAIN OR SHORTNESS OF BREATH AT THIS TIME. ON 5L HIGH FLOW NC SAT 91-92%. DIMINISHED BREATH SOUNDS. TRACING SR ON THE EDGE BANDER OPERATOR. PT UP TO BSC AND RECLINER THIS MORNING AFTER BREAKFAST WITH MAX ASSIST X 1. ENCOURAGEMENT NEEDED. PT RECEIVING IV ABX. PT GOAL FOR TODAY IS TITRATE OXYGEN, WORK WITH PT AND OT, INCREASE ACTIVITY AND REMAIN AFEBRILE. AM ASSESSMENT CHARTED. MEDICATIONS PER JUL. PT REPOSITIONS SELF EVERY 2 HOURS WITH REMINDERS. HOURLY ROUNDING OBSERVED. BED IN LOW POSITION. CALL LIGHT WITHIN REACH. WILL CONTINUE PLAN OF CARE.
[2020-02-20 14:19] VITALS: BP 114/73
--- NOTE | 2020-02-20 16:53 | NUR ---
NO ACUTE CHANGES THROUGHOUT SHIFT. REFER TO CHARTING. PULM HERE TO SEE PT. ORDERS RECEIVED FOR IV LASIX AND ALBUMIN. REFER TO EMAR. PT TO HAVE LABS AND CXR IN AM. STILL REMAINS ON 5L NC SAT 91-92%. PT WORKED WITH PHYSICAL THERAPY TODAY-TOLERATED FAIR. UP TO RECLINER-WEAKNESS AND FATIGUE NOTED. CONTINUES TO TRACE SR ON THE MANAGER BIOSTATISTICS. DENIES ANY PAIN OR SHORTNESS OF BREATH AT REST. SLOWLY PROGRESSING TOWARDS GOALS. MEDS PER JUL. PT REPOSITIONS SELF WITH REMINDERS. HOURLY ROUNDING OBSERVED. BED IN LOW POSITION. BED ALARM IN PLACE. FALL PRECAUTIONS IN PLACE. CALL LIGHT WITHIN REACH. WILL CONTINUE PLAN OF CARE.
[2020-02-20 18:07] VITALS: BP 119/86
[2020-02-20 20:00] VITALS: BP 124/76
[2020-02-21] VITALS (7 sets, daily range): BP systolic 100–139; BP diastolic 67–92
[2020-02-21 05:41] LABS: ABSOLUTE LYMPHOCYTES 0.7 thou/uL (0.8-5.3); ABSOLUTE MONOCYTES 0.6 thou/uL (0.0-1.2); ABSOLUTE NEUTROPHILS 6.6 thou/uL (1.6-8.1); BASOPHILS 0.1 %; EOSINOPHILS 0.1 %; HEMATOCRIT 39.1 % (42.0-52.0); HEMOGLOBIN 13.3 gm/dL (14.0-18.0); LYMPHOCYTES 8.5 %; MCH 32.5 pg (26.0-34.0); MCHC 34.1 g/dL (28.0-37.0); MCV 95.3 fL (80.0-100.0); MONOCYTES 7.8 %; MPV 8.7 fl. (7.2-11.1); NUCLEATED RBCS 0 /100WBC; PLATELET COUNT* 279 thou/uL (150-400); POLYS 83.5 %; RBC 4.11 mil/uL (4.50-6.00); RDW-CV 12.7 % (10.5-14.5); WBC 7.8 thou/uL (4.0-11.0)
[2020-02-21 06:05] LABS: CALCIUM 8.2 mg/dL (8.5-10.1); CREATININE 1.1 mg/dL (0.6-1.3); MAGNESIUM 2.4 mg/dL (1.8-2.4); POTASSIUM 4.3 mmol/L (3.5-5.1); TOTAL BILIRUBIN 1.1 mg/dL (<0.1-1.0); TOTAL PROTEIN 6.5 g/dL (6.4-8.2)
--- NOTE | 2020-02-21 08:19 | NUR ---
PT CARE ASSUMED AT 1930. SAT MAINTAINED IN 4L NC. ALERT AND ORIENTED X4. PT IS ANXIOUS. CALL LIGHT WITHIN REACH AND BED IN LOW POSITION. PAIGE IN PLACE AND DRAINING. HOURLY ROUNDING DONE FOR PT SAFETY.
--- NOTE | 2020-02-21 18:13 | NUR ---
PT RESTING AT THIS TIME. VSS ON 3L NC. SB ON MONITOR. GRECIA DCD. NO COMPLAINTS. NOTHING FURTHER.CLWR.WCTM
[2020-02-22] VITALS: BP 98/63
[2020-02-22 04:00] VITALS: BP 94/45; BP 94/65
[2020-02-22 06:07] LABS: CALCIUM 7.9 mg/dL (8.5-10.1); CREATININE 0.9 mg/dL (0.6-1.3); POTASSIUM 4.3 mmol/L (3.5-5.1)
[2020-02-22 06:18] LABS: ABSOLUTE LYMPHOCYTES 0.9 thou/uL (0.8-5.3); ABSOLUTE MONOCYTES 0.6 thou/uL (0.0-1.2); BASOPHILS 0.4 %; EOSINOPHILS 0.2 %; HEMOGLOBIN 12.3 gm/dL (14.0-18.0); LYMPHOCYTES 11.4 %; MCH 32.1 pg (26.0-34.0); MCHC 34.3 g/dL (28.0-37.0); MCV 93.7 fL (80.0-100.0); MONOCYTES 8.3 %; MPV 8.7 fl. (7.2-11.1); NUCLEATED RBCS 0 /100WBC; PLATELET COUNT* 237 thou/uL (150-400); POLYS 79.7 %; RBC 3.84 mil/uL (4.50-6.00); RDW-CV 12.8 % (10.5-14.5); WBC 7.5 thou/uL (4.0-11.0)
[2020-02-22 08:00] VITALS: BP 136/77
[2020-02-22 12:09] VITALS: BP 116/73
[2020-02-22 17:24] VITALS: BP 114/77
[2020-02-22 20:00] VITALS: BP 147/81
[2020-02-23] VITALS: BP 121/69
[2020-02-23 04:00] VITALS: BP 105/61
[2020-02-23 06:19] LABS: ABSOLUTE LYMPHOCYTES 1.3 thou/uL (0.8-5.3); ABSOLUTE MONOCYTES 0.6 thou/uL (0.0-1.2); ABSOLUTE NEUTROPHILS 5.5 thou/uL (1.6-8.1); BASOPHILS 0.6 %; EOSINOPHILS 0.4 %; HEMATOCRIT 36.1 % (42.0-52.0); HEMOGLOBIN 12.4 gm/dL (14.0-18.0); LYMPHOCYTES 16.8 %; MCH 32.3 pg (26.0-34.0); MCHC 34.3 g/dL (28.0-37.0); MCV 94.3 fL (80.0-100.0); MONOCYTES 8.6 %; MPV 8.6 fl. (7.2-11.1); NUCLEATED RBCS 0 /100WBC; PLATELET COUNT* 221 thou/uL (150-400); POLYS 73.6 %; RBC 3.83 mil/uL (4.50-6.00); RDW-CV 12.6 % (10.5-14.5); WBC 7.5 thou/uL (4.0-11.0)
[2020-02-23 06:26] LABS: CALCIUM 8.2 mg/dL (8.5-10.1); CREATININE 0.9 mg/dL (0.6-1.3)
[2020-02-23 07:30] VITALS: BP 112/67
[2020-02-23] MEDS ORDERED: CYCLOBENZAPRINE10 MG PO (11:18)
[2020-02-23] MEDS ORDERED: FLORASTOR250 MG PO (11:18)
[2020-02-23] MEDS ORDERED: NEXIUM40 MG PO (11:18)
[2020-02-23] MEDS ORDERED: DEXAMETHASONE1 MG PO (11:19)
[2020-02-23] MEDS ORDERED: VENTOLIN HFA 1818 GM INH (11:20)
[2020-02-23 13:13] VITALS: BP 112/67
== END 2020-02-23 13:20 | disposition home or self-care (01) | DRG 870 ==
LOC: M.ERS 10:33 → M.2W 11:26 → M.TBA-ER 11:26 → M.2W 20:43 → M.ICU 02-13 14:47 → M.2W 02-19 17:46
PROVIDERS: Emergency Medicine Emergency Medical Services; Internal Medicine Critical Care Medicine; Pediatrics; ADMIT Internal Medicine; ATTEND Internal Medicine
DX: A41.89 Other specified sepsis (principal); U07.1 COVID-19; J12.89 Other viral pneumonia; J96.01 Acute respiratory failure with hypoxia; E87.1 Hypo-osmolality and hyponatremia; N17.9 Acute kidney failure, unspecified; M62.82 Rhabdomyolysis; I16.0 Hypertensive urgency; D64.9 Anemia, unspecified; E87.70 Fluid overload, unspecified; R73.9 Hyperglycemia, unspecified; Z79.899 Other long term (current) drug therapy

== ENCOUNTER 2021-06-09 19:20 | Emergency (ER) | payer OTHER ==
[~2021-06-09] VITALS: Ht 180.3 cm; Wt 106.6 kg
--- NOTE | ~2021-06-09 | EKG ---
[place] [address] ELECTROCARDIOGRAM REPORT Name: INDIA CONNOLLY Room: 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
[~2021-06-09 19:20] MED LIST changes: +CYCLOBENZAPRINE10 MG PO; +DEXAMETHASONE1 MG PO; +FLORASTOR250 MG PO; +NEXIUM40 MG PO
[2021-06-09] MEDS ORDERED: SYMBICORT160 MCG/4. INH (20:09)
[2021-06-09 20:49] LABS: ABSOLUTE BASOPHILS 0.1 thou/uL (0.0-0.2); ABSOLUTE LYMPHOCYTES 1.4 thou/uL (0.8-5.3); ABSOLUTE MONOCYTES 0.5 thou/uL (0.0-1.2); ABSOLUTE NEUTROPHILS 6.1 thou/uL (1.6-8.1); BASOPHILS 1.1 %; EOSINOPHILS 0.4 %; HEMATOCRIT 45.3 % (42.0-52.0); HEMOGLOBIN 15.5 gm/dL (14.0-18.0); LYMPHOCYTES 16.7 %; MCH 32.3 pg (26.0-34.0); MCHC 34.2 g/dL (28.0-37.0); MCV 94.3 fL (80.0-100.0); MONOCYTES 6.6 %; NUCLEATED RBCS 0 /100WBC; PLATELET COUNT* 230 thou/uL (150-400); POLYS 75.2 %; RDW-CV 13.3 % (10.5-14.5); WBC 8.1 thou/uL (4.0-11.0)
[2021-06-09 20:57] LABS: CALCIUM 8.4 mg/dL (8.5-10.1); CREATININE 1.1 mg/dL (0.6-1.3); POTASSIUM 3.9 mmol/L (3.5-5.1)
[2021-06-09] MEDS ORDERED: VISTARIL 25 MG25 M1 PO (21:18)
[2021-06-09 21:31] VITALS: BP 160/99
== END 2021-06-09 21:32 | disposition home or self-care (01) ==
LOC: M.ERS 19:20
PROVIDERS: Emergency Medicine
DX: U07.1 COVID-19 (principal); F41.0 Panic disorder [episodic paroxysmal anxiety]; Z79.899 Other long term (current) drug therapy